=== PATIENT | male | born 1985 | race Caucasian/White ===

== ENCOUNTER 2023-03-03 15:33 | Emergency (ER) | payer OTHER, SELFPAY ==
[2023-03-03 15:43] VITALS: BP 127/77; PULSE 46; RESP 18; TEMP 36.6; O2SAT 99; BMI 23.5
--- NOTE | 2023-03-03 15:47 | ED.UPPEXIN1 ---
HPI - Extremity Injury (Upper) General Chief Complaint: Wound/Laceration Stated Complaint: HAND LACERATION Time Seen by Provider: 03/03/23 15:34 Mode of arrival: walk-in Limitations: no limitations History of Present Illness HPI narrative: patient is a 37-year-old male who presents to the emergency department for the evaluation of a laceration to the palm of the right hand. He is left-hand dominant. He states he cut himself with a utility knife just prior to arrival. Bleeding is controlled at this time. Unknown last tetanus. Related Data Allergies Allergy/AdvReac Type Severity Reaction Status Date / Time No Known Drug Allergies Allergy Verified 03/03/23 15:43 Review of Systems ROS Constitutional Denies: fever or chills Respiratory Denies: shortness of breath or cough Gastrointestinal Denies: nausea or vomiting Musculoskeletal Reports: extremity pain; Denies: back pain or neck pain Integumentary/Breast Denies: rash Neurological Denies: headache Exam Narrative Exam Narrative: Gen.: Awake, alert, in no distress Head: Normocephalic, atraumatic ENT: Moist mucous membranes Respiratory: No respiratory distress Extremities: Moves extremities equally, patient is able to make a fist with the right hand, 3 cm laceration noted to the palm of the right hand in the webspace between the right thumb and index finger. Laceration extends into the subcutaneous tissue, minimal active bleeding with exploration of the wound. No arterial bleeding noted. No obvious tendon involvement or tendon laceration. No tendon deficit with movement of the thumb or index finger Psych: Normal mood and affect Neuro: No focal neuro deficit Skin: Warm, dry Constitutional Vital Signs, click to edit/add: Last Vital Signs Temp 97.8 F 03/03/23 15:43 Pulse 46 L 03/03/23 15:43 Resp 18 03/03/23 15:43 BP 127/77 03/03/23 15:43 Pulse Ox 99 03/03/23 15:43 O2 Del Method Room Air 03/03/23 15:43 Course Vital Signs Vital signs: Vital Signs Temperature 97.8 F 03/03/23 15:43 Pulse Rate 46 L 03/03/23 15:43 Respiratory Rate 18 03/03/23 15:43 Blood Pressure 127/77 03/03/23 15:43 Pulse Oximetry 99 03/03/23 15:43 Oxygen Delivery Method Room Air 03/03/23 15:43 Temperature 97.8 F 03/03/23 15:43 Pulse Rate 46 L 03/03/23 15:43 Respiratory Rate 18 03/03/23 15:43 Blood Pressure 127/77 03/03/23 15:43 Pulse Oximetry 99 03/03/23 15:43 Oxygen Delivery Method Room Air 03/03/23 15:43 MDM - Extremity Injury (Upper) MDM Narrative Medical decision making narrative: laceration repaired without difficulty, please see procedure note for details. Tetanus updated in the Emergency Room, patient is neurovascularly intact pre-and post suture placement, though he was counseled based on the location of the laceration he should follow-up with his PCP for reevaluation to make sure that he remains neurovascularly intact with no evidence of tendon deficit. Suture removal in 7-10 days. Laceration repair: Done under sterile conditions. The use of Shur-Clens prep the area. Local injection with lidocaine 1% was used, approximately 6 cc. The wound was irrigated copiously with normal saline. The wound was explored there was no evidence of foreign material. The laceration was approximated with 4-0 nylon. 5 simple interrupted sutures were placed. Patient tolerated the procedure well. The patient was neurovascularly intact post. the patient had bacitracin applied to the laceration and a dry sterile dressing was place. The patient will need to follow-up in the next 7-10 days for removal Medical Records Attestation: I reviewed the patient's medical records. Discharge Plan Discharge Chief Complaint: Wound/Laceration Clinical Impression: Laceration of right hand Patient Disposition: Home, Self-Care Time of Disposition Decision: 15:53 Condition: Good Instructions: Laceration (ED) Additional Instructions: Sutures removed in 7-10 days with your doctor or urgent care Stand Alone Forms: Portal Instructions
[2023-03-03] MEDS: LIDOCAINE HCL 1% 100 MG/10 ML MDV INJ (16:28)
[2023-03-03] MEDS: ADACEL DIPH,PERTUSS(ACELL),TET VAC/PF 0.5 ML ADULT SYRINGE IM (16:28)
[2023-03-03] MEDS: BACITRACIN 0.9 GM PACKET 1 PACKET TOPICAL (16:29)
[2023-03-03 16:32] VITALS: PULSE 47; O2SAT 99
== END 2023-03-03 16:34 | disposition home or self-care (01) ==
PROVIDERS: Emergency Provider Emergency Medicine; PCP Family Medicine
DX: S61.412A Laceration without foreign body of left hand, initial encounter (principal); W26.0XXA Contact with knife, initial encounter; Z23 Encounter for immunization
CPT/HCPCS: 12002; 90471; 90715; 99283